=== PATIENT | male | born 1985 | race Caucasian/White ===

== ENCOUNTER 2018-03-20 10:12 | Outpatient (CLI) | payer OTHER ==
--- NOTE | 2018-03-20 18:05 | MRI Report ---
Reason: PERSONAL HISTORY OF OTHER DISEASES OF THE NERVOUS Procedure Date: 03/20/2018 Accession Number: [id number] / [id number] Procedure: MRI - Brain W/O CPT Code: FULL RESULT: EXAM: MRI BRAIN WITHOUT CONTRAST EXAM DATE: 03/20/2018 10:57 AM. CLINICAL HISTORY: 32-year-old male, increasing frequency of migraines with aura. COMPARISON: None. TECHNIQUE: Multiplanar, multisequence T1-weighted and fluid-sensitive MR sequences of the brain were performed. Sequences optimized for routine evaluation. Other: None. IV Contrast: None. FINDINGS: Brain Volume: Normal for age. Parenchyma/Dura: No mass, acute infarct or hemorrhage. No white matter lesions identified. Prominent perivascular space inferior to the left basal ganglia. No parenchymal foci of susceptibility artifact. Ventricles/Cisterns: No hydrocephalus. No abnormal extra-axial fluid collection or hemorrhage. Orbits: Symmetric and unremarkable. Sella Turcica: The pituitary gland, cavernous sinuses, suprasellar cistern and optic chiasm are unremarkable. IAC: Symmetric and unremarkable. Vasculature: Normal signal flow void is seen in the major arterial structures at the skull base. Sinuses: Mucus retention cyst/polyp right maxillary sinus. The remaining paranasal sinuses are clear. Bones: No focal pathologic appearing marrow signal changes. Other: None. IMPRESSION: 1. Unremarkable MR examination of the brain. No white matter lesions. No MRI evidence of acute intracranial abnormality. Specifically, no evidence of acute or subacute infarct, acute intracranial hemorrhage, mass, midline shift, or hydrocephalus. [facility]
== END 2018-03-20 10:13 | disposition home or self-care (01) ==
LOC: DI 10:12
PROVIDERS: ATTEND Family Medicine
DX: Z86.69 Personal history of other diseases of the nervous system and sense organs (principal)
CPT/HCPCS: 70551

== ENCOUNTER 2019-06-01 12:26 | Outpatient (CLI) | payer OTHER ==
--- NOTE | 2019-06-01 13:53 | MRI Report ---
Reason: MIGRAINE Procedure Date: 06/01/2019 Accession Number: [id number] / [id number] Procedure: MRI - Brain W/O CPT Code: Final Report FULL RESULT: EXAM: MRI BRAIN WITHOUT CONTRAST EXAM DATE: 06/01/2019 01:09 PM. CLINICAL HISTORY: Increased frequency of migraines. COMPARISON: BRAIN W/O 03/20/2018 10:26 AM. TECHNIQUE: Multiplanar, multisequence T1-weighted and fluid-sensitive MR sequences of the brain were performed. Sequences optimized for routine evaluation. Other: None. IV Contrast: None. FINDINGS: Brain Volume: Normal for age. Parenchyma/Dura: No mass, acute infarct or hemorrhage. No white matter lesions identified. Ventricles/Cisterns: No hydrocephalus. No abnormal extra-axial fluid collection or hemorrhage. Orbits: Symmetric and unremarkable. Sella Turcica: The pituitary gland, cavernous sinuses, suprasellar cistern and optic chiasm are unremarkable. IAC: Symmetric and unremarkable. Vasculature: Normal signal flow void is seen in the major arterial structures at the skull base. Sinuses: More prominent maxillary sinus mucosal thickening, up to 9 mm in thickness inferiorly on the left. Inferior right maxillary sinus retention cyst. Mild but potentially also more prominent bilateral ethmoid mucosal thickening. Slightly more prominent mild frontal mucosal thickening. Clear mastoids. Bones: No focal pathologic appearing marrow signal changes. Other: None. IMPRESSION: 1. Stable normal intracranial MRI findings. 2. More prominent paranasal sinus mucosal thickening. [facility]
== END 2019-06-01 12:27 | disposition home or self-care (01) ==
LOC: DI 12:26
PROVIDERS: ATTEND Family Medicine
DX: G43.909 Migraine, unspecified, not intractable, without status migrainosus (principal)
CPT/HCPCS: 70551